=== PATIENT | female | born 1950 | race Two or more races ===

== ENCOUNTER → 2016-06-04 | Outpatient (CLI) | payer OTHER, MEDICAID | LOC: FIMAGING 13:56 | DX: Z13.820 Encounter for screening for osteoporosis (principal); M85.80 Other specified disorders of bone density and structure, unspecified site ==

== ENCOUNTER 2016-07-30 10:26 | Day surgery (SDC) | payer OTHER, MEDICAID ==
[2016-07-30] MEDS ORDERED: NS 1,000 ML IV SCH (11:05)
[2016-07-30] MEDS ORDERED: NALOXONE HCL 0.4 MG/ML INJ ONE (12:01)
[2016-07-30] MEDS ORDERED: MIDAZOLAM 2 MG/2 ML VIAL ONE (12:01)
[2016-07-30] MEDS ORDERED: FLUMAZENIL 0.5 MG/5 ML MDV IVP ONE (12:01)
[2016-07-30] MEDS ORDERED: EPINEPHrine 1 MG/10 ML SYR IVP ONE (12:02)
[2016-07-30] MEDS ORDERED: fentaNYL 100 MCG/2 ML INJ ONE (12:02)
--- NOTE | 2016-07-30 13:11 | GPN ---
[f rep st] PROCEDURE NOTE DATE OF PROCEDURE: 07/30/2016 PROCEDURE: Colonoscopy and biopsy. INDICATION: Routine screening. Ten year followup. PREOP DIAGNOSIS: Screening colonoscopy, rule out polyps. POSTOP DIAGNOSIS: 1. Moderate size lipoma in the ascending colon, status post biopsy of superficial mucosa and some o f the fat underneath. 2. No other polypoid lesions noted in the colon; otherwise normal exam. INFORMED CONSENT: I had a detailed discussed with the patient regarding the procedure, alternatives , benefits, and risks including bleeding, perforation, infection, risk of medication. Informed cons ent was signed and witnessed. COMPLICATIONS: None immediate. MEDICATIONS: Versed 3 mg IV. Fentanyl 75 mcg IV. PROCEDURE IN DETAIL: Patient was placed in the left lateral decubitus position, after adequate IV s edation, a visual and digital anorectal examination was performed. The video colonoscope was insert ed via the rectum and advanced under direct visualization to the terminal ileum. Upon withdrawal of the instrument, careful attention was paid to mucosal detail. The prep was very good. There was a lipomatous polypoid lesion in the mid ascending colon. Biopsies taken from the mucosal surface and some fat was protruding underneath. Retroflex examination was performed in the cecum. Careful att ention was paid to mucosal detail on withdrawal. There were no other polyps, lesions. Retroflex ex amination was performed in the rectum. The endoscope was completely withdrawn, confirming the above findings. The patient tolerated the procedure well, was transferred to the recovery room in satisfactory condi tion. IMPRESSION: Moderate-size lipoma in ascending colon, otherwise normal exam. RECOMMENDATIONS: 1. Follow up pathology, make sure there is no adenomatous tissue. 2. As long as no adenomatous tissue, recommend repeat colonoscopy in 10 years for routine screening . 3. High-fiber, high-fluid diet. 4. Follow up with primary care physician as scheduled. Thank you for allowing me to participate in patient's healthcare. Do not hesitate to call me with a ny questions. /[id number]/MODL
== END 2016-07-30 14:20 | disposition home or self-care (01) ==
LOC: FSGY 10:26
PROVIDERS: ATTEND Internal Medicine Gastroenterology
PROC: 0DBK8ZX Excision of Ascending Colon, Via Natural or Artificial Opening Endoscopic, Diagnostic (ICD-10-PCS; principal; 2016-07-30 12:15)
DX: Z12.11 Encounter for screening for malignant neoplasm of colon (principal); D17.9 Benign lipomatous neoplasm, unspecified
CPT/HCPCS: J2250; J2310; J3010

== ENCOUNTER → 2016-11-12 | Outpatient (CLI) | payer OTHER, MEDICAID | LOC: FIMAGING 13:35 | PROVIDERS: ATTEND Physician Assistant Medical | DX: Z12.31 Encounter for screening mammogram for malignant neoplasm of breast (principal) | CPT/HCPCS: G0202 ==

== ENCOUNTER 2016-12-04 16:21 | Emergency (ER) | payer OTHER, MEDICAID ==
[2016-12-04 16:29] VITALS: RESP 18; TEMP 97.7
--- NOTE | 2016-12-04 18:01 | EDPHY ---
H & P Stated Complaint: Sent from for eval?DVT RLE;pt states soreness R knee x 1 wk Time Seen by Provider: 12/04/16 16:36 HPI/ROS: CHIEF COMPLAINT: Right posterior knee pain HISTORY OF PRESENT ILLNESS: The patient presents to the ED with right posterior knee pain for the past week. The patient complained of some pain with ambulation in the posterior aspect of the right knee. She denies any history of fall or trauma. She denies any history of numbness or weakness. The patient denies any chest pain or shortness of breath. She denies significant past medical history. The patient has been taking ibuprofen with improvement of her symptoms. REVIEW OF SYSTEMS: A comprehensive 10 point review of systems is otherwise negative aside from elements mentioned in the history of present illness. Source: Patient Exam Limitations: No limitations - Personal History Current Tetanus Diphtheria and Acellular Pertussis (TDAP): Unsure - Medical/Surgical History Hx Asthma: No Hx Chronic Respiratory Disease: No Hx Diabetes: No Hx Cardiac Disease: No Hx Renal Disease: No Hx Cirrhosis: No Hx Alcoholism: No Hx HIV/AIDS: No Hx Splenectomy or Spleen Trauma: No Other PMH: p[employer]- [employer] - Social History Smoking Status: Never smoked - Physical Exam Exam: General Appearance: Alert, no distress Eyes: Pupils equal and round no pallor or injection ENT, Mouth: Mucous membranes moist Respiratory: There are no retractions, lungs are clear to auscultation Cardiovascular: Regular rate and rhythm Gastrointestinal: Abdomen is soft and nontender, no masses, bowel sounds normal Neurological: 5/5 strength noted bilateral lower extremities, normal sensory exam Skin: Warm and dry, no rashes Musculoskeletal: Neck is supple nontender Extremities: Tenderness to palpation posterior aspect of right knee, 2+ dorsalis pedis and posterior tibial pulse Constitutional: Initial Vital Signs Temperature (C) 36.5 C 12/04/16 16:26 Heart Rate 70 12/04/16 16:26 Respiratory Rate 18 12/04/16 16:26 Blood Pressure 126/79 H 12/04/16 16:26 O2 Sat (%) 98 12/04/16 16:26 O2 Delivery Mode Room Air Allergies/Adverse Reactions: No Known Allergies Allergy (Verified 12/04/16 16:26) Home Medications: Medication Instructions Recorded NK [No Known Home Meds] 12/04/16 Medical Decision Making - Diagnostics Imaging Results: Imaging Impressions Extremity Venous Study 12/04/16 16:46 Impression: No evidence of deep vein thrombosis in the right leg. Findings and recommendations discussed with Fritz Kim at 1720 hour, 12/04. Final report concurs with initial preliminary interpretation. ED Course/Re-evaluation: The patient presents to the ED for evaluation of posterior knee pain. The patient was taken for a stat ultrasound of the extremity which demonstrates no evidence of a DVT or Rene cyst. The patient is noted to be neurologically intact with normal 2+ dorsalis pedis and posterior tibial pulses. Patient has no clinical evidence of a cellulitis, septic arthritis or abscess. At this point time I do feel the patient is experiencing a myofascial strain. I do feel that she can continue to take NSAIDs as an outpatient. She has been instructed to repeat the ultrasound in 2 weeks for any ongoing symptoms to exclude the interval development of a DVT. Differential Diagnosis: Differential diagnosis considered includes myofascial strain, DVT, Rene cyst Departure - Departure Disposition: Home, Routine, Self-Care Clinical Impression: Musculoskeletal pain Condition: Good Instructions: Musculoskeletal Pain (ED) Additional Instructions: 1. Your ultrasound demonstrates no evidence of a blood clot. 2. Take Ibuprofen or Motrin 600 mg by mouth three times a day. 3. Please return to the ED for severe pain, markedly worsening symptoms or other concerns. Referrals: Loida Rios PA [Primary Care Provider] - As per Instructions
[2016-12-04 18:05] VITALS: BP 129/81; PULSE 67; O2SAT 96
== END 2016-12-04 18:15 | disposition home or self-care (01) ==
DX: M25.561 Pain in right knee (principal)

== ENCOUNTER → 2017-10-14 | Outpatient (CLI) | payer OTHER, MEDICAID | DX: R06.02 Shortness of breath (principal); R94.31 Abnormal electrocardiogram [ECG] [EKG]; R60.9 Edema, unspecified; M19.90 Unspecified osteoarthritis, unspecified site; M25.561 Pain in right knee; M25.562 Pain in left knee ==